=== PATIENT | female | born 1965 | race Caucasian/White ===

== ENCOUNTER 2022-06-03 08:06 | Day surgery (SDC) | payer OTHER, SELFPAY ==
[2022-06-03 08:31] VITALS: BP 140/93; PULSE 76; RESP 16; TEMP 36.3; O2SAT 96; BMI 47.2
--- NOTE | 2022-06-03 09:09 | HO.ANESPROP2 ---
HPI - Anesthesia Eval Consult details Narrative: Ugi for gerd symptoms PMFSH Past Medical History Medical History (Updated 06/02/22 @ 11:43 by Amy Frey RN) Diverticulitis Eczema Family History Family history of problems with anesthesia: No Surgical History Surgical History (Updated 06/02/22 @ 11:43 by Amy Frey RN) H/O colonoscopy Hx of cholecystectomy History of Problems with Anesthesia: No Social History Social History Patient Tobacco Use Status: Never used Tobacco Use of substances other than those prescribed or required for medical reasons: Yes Substance Use Frequency: Weekly Advance Directives: No Advance Directives Information Provided: Yes Meds Allergies Allergy/AdvReac Type Severity Reaction Status Date / Time No Known Allergies Allergy Unverified 05/31/22 16:44 Home Medications Medication Instructions Recorded Confirmed Last Taken Type clobetasol 0.05 % topical cream 1 appl topical BID 06/02/22 06/02/22 Unknown History Exam Exam Date and Time: June 03, 2022 0909 Height,Weight and Vital Signs: Height 5 ft 1 in Weight 113.398 kg Last Vital Signs Temp 97.4 F 06/03/22 08:31 Pulse 76 06/03/22 08:31 Resp 16 06/03/22 08:31 BP 140/93 H 06/03/22 08:31 Pulse Ox 96 06/03/22 08:31 O2 Del Method 06/03/22 08:31 Airway Mallampati Class: I TM Dist: >3cm Neck ROM: Full Loose/Missing/Broken Teeth: No Heart: rrr Lungs: cta Assessment and Plan Assessment Anesthesia Assessment: Anesthesia Plan Discussed Final Anesthetic Review Family History of Problems with Anesthesia: No History of Problems with Anesthesia: No NPO: Yes ASA Class: II Final Preanesthetic Review: No Changes in Pt Med Stat, Meds/Allgs Chart Reviewed, Consent Obtained/Reviewed and Anes Risks/Benef Reviewed Patient Risk: Low Procedure Risk: Low Anesthetic Plan Anesthetic Plan: Agree w/ Assess. and Plan Disposition: Standard PACU
--- NOTE | 2022-06-03 10:04 | PC.NURSE ---
left palm, eczema, seen by [facility]
[2022-06-03 10:33] VITALS: BP 136/91; PULSE 89; RESP 20; TEMP 36.3; O2SAT 97
--- NOTE | 2022-06-03 10:36 | P.BOP_ITS ---
Brief Operative Note Date of Service: 06/03/22 Pre-op diagnosis: Globus, Belching Post-op diagnosis: other (Hiatal hernia, Gastritis) Procedure: EGD with biopsies Surgeon: Jacob Mosher Anesthesia: MAC Was an Film Processing Shift Supervisor used for this Procedure?: No Estimated blood loss (mL): 2.0 Pathology: other (A. Gastric antrum B. EG Junction at 35cm C. Esophagus at 20cm) Condition: stable Disposition: PACU
[2022-06-03 10:48] VITALS: BP 138/63; PULSE 89; RESP 16; TEMP 36.1; O2SAT 100
--- NOTE | 2022-06-03 22:32 | OP_ITS ---
SURGEON: Jacob Mosher MD INDICATIONS: The patient presents for evaluation of belching, globus, and question of reflux. Full consent has been obtained from her for this procedure including risks of bleeding and perforation. PREOPERATIVE DIAGNOSIS: POSTOPERATIVE DIAGNOSIS: PROCEDURE PERFORMED: Esophagogastroduodenoscopy with biopsies. ESTIMATED BLOOD LOSS: COMPLICATIONS: ANESTHESIA: Monitored anesthesia care. ASSISTANTS: SPECIMENS: PREOPERATIVE DIAGNOSES: Belching, globus, and question of reflux. POSTOPERATIVE DIAGNOSES: Belching, globus, question of reflux, small hiatal hernia, mild gastritis. DESCRIPTION OF PROCEDURE: The patient was placed in the left lateral decubitus position. The Olympus video gastroscope was passed in the posterior oropharynx and upper esophagus under direct vision. The scope was passed slowly to the distal esophagus. The gastroesophageal junction appeared at 35 cm. There was some slight edema and erythema, as well as some very minimal irregularity. However, there was no evidence of esophagitis nor any evidence of Lopez's mucosa. There was no stricture. The scope entered into the stomach. There was a small hiatal hernia. The scope was advanced to pylorus and the duodenum was cannulated to the descending portion. The duodenum including the bulb appeared normal without mass or ulceration. The scope was withdrawn back into the stomach. The gastric antrum and body had some mild areas of erythema and edema consistent with some mild gastritis, but no erosions nor ulcerations. There was good peristalsis. Biopsies were obtained from the antrum. The scope was retroflexed visualizing the proximal stomach carefully, which appeared normal, without any mass or ulceration. The scope was straightened and withdrawn back into the esophagus. Biopsies were obtained at the EG junction at 35 cm. Proximal to this, the esophageal mucosa appeared normal. Biopsies were obtained between 20 cm and 25 cm as well in the esophagus, although the mucosa appeared normal. The scope was then withdrawn from the patient. Views of the oropharynx and vocal cords appeared normal. The scope was withdrawn from the patient. She tolerated the procedure well and was returned to the recovery area in stable condition. IMPRESSION: 1. Small hiatal hernia, gastroesophageal reflux. 2. Mild gastritis. PLAN: The results of the biopsies will be checked. I do not think any of today's findings would account for her symptoms of the globus and belching. I suspect the globus sensation is nonspecific and the belching has become a habit that relieves the sense of globus. I am going to recommend an eventual barium swallow to rule out anything such as a Zenker's diverticulum that might be contributing for symptoms, although I think that will be unlikely. I will follow her up in the office and at that point discuss a screening colonoscopy given that she had one over 5 or 6 years ago and there is a family history of polyps in her mother. She was advised not to use any aspirin and NSAIDs for 1 week. I will put her on a trial of omeprazole 40 mg daily just to see if by chance that gives her any relief in the meantime. MD ARLINE Romo/DAMION / [id number] MTDD
== END 2022-06-03 11:17 | disposition home or self-care (01) ==
PROVIDERS: PCP Family Medicine; Visit Provider Internal Medicine
PROC: 0DJ08ZZ Inspection of Upper Intestinal Tract, Via Natural or Artificial Opening Endoscopic (ICD-10-PCS; CPT 43235; principal; 2022-06-03 09:30)
DX: R19.8 Other specified symptoms and signs involving the digestive system and abdomen (principal); K21.9 Gastro-esophageal reflux disease without esophagitis; K29.60 Other gastritis without bleeding; F45.8 Other somatoform disorders; K44.9 Diaphragmatic hernia without obstruction or gangrene; Z87.19 Personal history of other diseases of the digestive system; L30.9 Dermatitis, unspecified
CPT/HCPCS: 43239; 88305; 88342; J2250; J3010

== ENCOUNTER 2022-07-14 10:25 | Outpatient (REF) | payer OTHER, SELFPAY ==
--- NOTE | ~2022-07-14 | FL_ITS ---
EXAMINATION: FL BARIUM SWALLOW CLINICAL INFORMATION: Belching, globus sensation, Zenker's. COMPARISON: None TECHNIQUE: Barium swallow examination is performed using fluoroscopic evaluation in addition to multiple fluoroscopic spot views. The patient is imaged both upright and prone and using both thick and thin sulfate along with effervescent granules. Fluoroscopy time: 1.7 minutes DAP: 18.852 Gycm2 Images: 66 FINDINGS: Following intravenous administration of thick barium and barium-coated turkey, there is normal propagation of bolus from the oral cavity through the pharynx, esophagus into stomach without any evidence of obstruction, narrowing or stricture. There is no extrinsic compression. On placing patient supine and prone lying, there is good distention of the entire esophagus with a small hiatal hernia. There is mild gastroesophageal reflux as well. The mucosal pattern of the esophagus is unremarkable. FL/FL barium swallow IMPRESSION: Small hiatal hernia with mild gastroesophageal reflux; otherwise, unremarkable upper barium swallow exam.
== END 2022-07-14 10:26 | disposition home or self-care (01) ==
LOC: HO.XRAY 10:25
PROVIDERS: Visit Provider Internal Medicine
DX: R14.2 Eructation (principal); R09.89 Other specified symptoms and signs involving the circulatory and respiratory systems
CPT/HCPCS: 74220